=== PATIENT | female | born 1975 | race Caucasian/White ===

== ENCOUNTER 2016-06-25 14:44 | Emergency (ER) | payer MEDICAID ==
--- NOTE | 2016-06-25 15:12 | EDPHY ---
H & P Stated Complaint: vag bleed clots x 2 days--1 week ago +preg test, abd pain Time Seen by Provider: 06/25/16 14:58 HPI/ROS: Chief complaint: , vaginal bleeding HPI: 40-year-old , last menstrual cycle on the 22 of May had a positive urine test 1 week ago. Patient started having some cramping with vaginal bleeding yesterday. Pain was VIII out of 10. She only soaked about 3-4 pads over the course today. He got better through the evening. This morning and she started having a little bit more bleeding with some worse cramping. She has only soaked 2 pads today. She describes some dark blood with some bright red blood and clots. She has not passed any tissue. ROS: 10 point Review of Systems is negative except as noted in the HPI. Past medical history: None Medications: None Allergies: No known drug allergies Social history: Occasional smoking, occasional alcohol, occasional marijuana use Physical exam: Gen: Awake, Alert, No Distress HEENT: Nose: no rhinorrhea Eyes: PERRLA, EOMI Mouth: Moist mucosa Neck: Supple, no JVD Chest: nontender, lungs clear to auscultation Heart: S1, S2 normal, no murmur Abd: Soft, non-tender, no guarding Back: no CVA tenderness, no midline tenderness Ext: no edema, non-tender Skin: no rash Neuro: CN II-XII intact, Sensation grossly intact, Strength 5/5 in bilateral upper and lower extremities - Personal History LMP (Females 10-55): Current Tetanus/Diphtheria Vaccine: Unsure Current Tetanus Diphtheria and Acellular Pertussis (TDAP): Unsure - Medical/Surgical History Hx Asthma: No Hx Chronic Respiratory Disease: No Hx Diabetes: No Hx Cardiac Disease: No Hx Renal Disease: No Hx Cirrhosis: No Hx Alcoholism: No Hx HIV/AIDS: No Hx Splenectomy or Spleen Trauma: No Other PMH: denies. 1 c sec - Social History Smoking Status: Never smoked Constitutional: Initial Vital Signs Temperature (C) 36.4 C 06/25/16 14:50 Heart Rate 87 06/25/16 14:50 Respiratory Rate 16 06/25/16 14:50 Blood Pressure 158/117 H 06/25/16 14:50 O2 Sat (%) 99 06/25/16 14:50 O2 Delivery Mode Room Air Allergies/Adverse Reactions: No Known Allergies Allergy (Unverified 07/12/12 19:54) Medical Decision Making - Diagnostics Imaging: Pelvic ultrasound: Empty uterus, normal ultrasound. Negative for IUP or evidence of ectopic. ED Course/Re-evaluation: 40-year-old with a positive test last week vaginal bleeding. Ultrasound shows an empty uterus and no evidence of IUP. HCG is 3.8, essentially a negative test. Rh is positive. Patient will be discharged with instructions to follow up with her OBGYN on Monday. Symptoms are consistent with a complete miscarriage. - Data Points Laboratory Results: Laboratory Results 06/25/16 15:17 06/25/16 06/25/16 06/25/16 15:48 15: 15:17 WBC 7.86 10^3/uL 10^3/uL (3.80-9.50) RBC 4.37 10^6/uL 10^6/uL (4.18-5.33) Hgb 13.7 g/dL g/dL (12.6-16.3) Hct 40.0 % % (38.0-47.0) MCV 91.5 fL fL (81.5-99.8) MCH 31.4 pg pg (27.9-34.1) MCHC 34.3 g/dL g/dL (32.4-36.7) RDW 15.0 % % (11.5-15.2) Plt Count 261 10^3/uL 10^3/uL (150-400) Beta HCG, Quant 3.86 mIU/mL mIU/mL (0-4.83) Patient ABO/Rh A POSITIVE Medications Given: Discontinued Medications Fentanyl (Sublimaze) 50 mcg IVP EDNOW ONE Stop: 06/25/16 16:21 Last Admin: 06/25/16 16:21 Dose: 50 mcg Departure - Departure Disposition: Home, Routine, Self-Care Clinical Impression: Complete miscarriage Condition: Good Instructions: Miscarriage (ED) Additional Instructions: Follow up with your OBGYN doctor on Monday. Referrals: NONE *PRIMARY CARE P,. [Unknown] - As per Instructions Oscar Ames MD [Medical Doctor] - As per Instructions
[2016-06-25 15:27] LABS: HEMOGLOBIN 13.7 g/dL (12.6-16.3); MEAN CELL HEMOGLOBIN 31.4 pg (27.9-34.1); MEAN CELL HEMOGLOBIN CONCENTR. 34.3 g/dL (32.4-36.7); MEAN CELL VOLUME 91.5 fL (81.5-99.8); RED BLOOD CELL COUNT 4.37 10^6/uL (4.18-5.33)
[2016-06-25] MEDS ORDERED: fentaNYL 100 MCG/2 ML INJ ONE (15:58)
[2016-06-25] MEDS ORDERED: fentaNYL 100 MCG/2 ML INJ IVP ONE (16:20)
[2016-06-25 16:39] VITALS: BP 132/83; PULSE 63; RESP 14; TEMP 98.1; O2SAT 95
== END 2016-06-25 16:43 | disposition home or self-care (01) ==
DX: O03.9 Complete or unspecified spontaneous abortion without complication (principal); Z3A.00 Weeks of gestation of pregnancy not specified
CPT/HCPCS: 96374; J3010

== ENCOUNTER 2016-06-27 19:58 | Emergency (ER) | payer MEDICAID ==
[2016-06-27 20:04] VITALS: BP 157/105; PULSE 87; RESP 16; TEMP 98.8; O2SAT 96
== END 2016-06-27 21:25 | disposition left against medical advice (07) ==
DX: Z53.21 Procedure and treatment not carried out due to patient leaving prior to being seen by health care provider (principal)

== ENCOUNTER 2016-08-18 16:10 | Emergency (ER) | payer MEDICAID ==
[2016-08-18 16:15] VITALS: BP 152/98; PULSE 83; RESP 16; TEMP 98.2; O2SAT 98
--- NOTE | 2016-08-18 16:31 | EDPHY ---
H & P Stated Complaint: During dental work yesterday drill caught her tongue;wants eval Time Seen by Provider: 08/18/16 16:19 - Personal History Current Tetanus Diphtheria and Acellular Pertussis (TDAP): Unsure - Medical/Surgical History Hx Asthma: No Hx Chronic Respiratory Disease: No Hx Diabetes: No Hx Cardiac Disease: No Hx Renal Disease: No Hx Cirrhosis: No Hx Alcoholism: No Hx HIV/AIDS: No Hx Splenectomy or Spleen Trauma: No Other PMH: denies. 1 c sec - Social History Smoking Status: Never smoked Constitutional: Initial Vital Signs Temperature (C) 36.8 C 08/18/16 16:12 Heart Rate 83 08/18/16 16:12 Respiratory Rate 16 08/18/16 16:12 Blood Pressure 152/98 H 08/18/16 16:12 O2 Sat (%) 98 08/18/16 16:12 O2 Delivery Mode Room Air Allergies/Adverse Reactions: No Known Allergies Allergy (Unverified 07/12/12 19:54) Home Medications: Medication Instructions Recorded Benzocaine [Orabase-B (*)] 1 gm TOP QID #1 tube 08/18/16 Hydrocodone/APAP 5/325 [[place] 1 each PO 08/18/16 5/325 (*)] Medical Decision Making ED Course/Re-evaluation: CHIEF COMPLAINT: Mouth pain. HISTORY OF PRESENT ILLNESS: The patient is a 40-year-old female who presents with mouth pain and right-sided jaw swelling that began yesterday when her dentist accidentally drilled her tongue during crown placement. She has treated the pain with saline rinses. She denies fever, chills, nausea, vomiting, diarrhea, or other complaints. REVIEW OF SYSTEMS: A 10 point review of systems was performed and is negative with the exception of the elements mentioned in the history of present illness. PHYSICAL EXAM: HR, BP, O2 Sat, RR. Temp noted General Appearance: Alert, well hydrated, appropriate, and non-toxic appearing. Head: Atraumatic without scalp tenderness or obvious injury Eyes: Pupils equal, round, reactive to light and accommodation, EOMI, no trauma , no injection. Ears: Clear bilaterally, no perforation, normal landmarks Nose: Atraumatic, no rhinorrhea, clear. Mouth: Lateral tongue ulceration with white exudate. Throat: There is no erythema or exudates, no lesions, normal tonsils, mucus membranes moist. Neck: Supple, 2+ carotid upstroke, nontender, no lymphadenopathy. Respiratory: No retractions, no distress, no wheezes, and no accessory muscle use. Lungs are clear to auscultation bilaterally. Cardiovascular: Regular rate and rhythm, no murmurs, rubs, or gallops. Bilateral carotid, radial, dorsalis pedis, and posterior tibial pulses intact. Good capillary refill all extremities. Gastrointestinal: Abdomen is soft, nontender, non-distended, no masses, no rebound, no guarding, no peritoneal signs. Musculoskeletal: Normal active ROM of all extremities, atraumatic. Neurological: Alert, appropriate, and interactive. The patient has normal DTRs and non-focal cranial nerves, motor, sensory, and cerebellar exam. Skin: No rashes, good turgor, no nodules on palpation. Past medical history: Denies. Past surgical history: . Family history: N/A. Social history: Here alone. MEDICAL DECISION MAKIN-year-old female presents with mouth pain and jaw swelling. She was getting a crown placed at her dentist yesterday when he drilled into her tongue. She now has white exudate over the lateral ulceration. I feel this represents an early infection. My concern is that she has been on 3 antibiotic courses in the past few weeks and she is at risk for antibiotic-related complications. We will treat her with an oral antibiotic gel and topical anesthetic that she can swish and spit. Departure - Departure Disposition: Home, Routine, Self-Care Clinical Impression: Tongue infection, Tongue ulceration Condition: Good Instructions: Acute Dental Trauma (ED) Additional Instructions: Use the Benzocaine solution as prescribed when needed for pain. Follow up with your primary care provider for reevaluation. If you need a PCP you have been given the telephone number of the on-call provider. Return for any serious worsening of condition. Referrals: Guille Murdock MD [Medical Doctor] - As per Instructions Prescriptions: Benzocaine [Orabase-B (*)] 1 gm TOP QID #1 tube Report Scribed for: Pete Ann Report Scribed by: Chava Delgadillo Date of Report: 08/18/16 Time of Report: 16:43
[2016-08-18] MEDS ORDERED: MBX SOLN 30 ML BOTTLE PO PRN (16:48)
== END 2016-08-18 17:10 | disposition home or self-care (01) ==
DX: K14.0 Glossitis (principal)